=== PATIENT | female | born 1955 | race Caucasian/White ===

== ENCOUNTER 2016-10-13 19:17 | Emergency (ER) | payer OTHER ==
--- NOTE | ~2016-10-13 | EKG ---
PATIENT: KRUPA HOLLAND UNIT #: [id number] Ventricular Rate: 72 BPM Atrial Rate: 72 BPM P-R Interval: 126 ms QRS Duration: 90 ms Q-T Interval: 420 ms QTC Calculation(Bezet): 459 ms P Saxon: 72 degrees Calculated R Saxon: 45 degrees Calculated T Saxon: 79 degrees Diagnosis Line: Normal sinus rhythm Diagnosis Line: T wave abnormality, consider anterior ischemia Diagnosis Line: Abnormal ECG Diagnosis Line: No previous ECGs available Diagnosis Line: Confirmed by LEANDER PANG MD ([id number]) on 10/14/2016 Diagnosis Line: 5:25:32 PM INTERPRETING MD: POLY HIGGINBOTHAM
--- NOTE | ~2016-10-13 | CR63 ---
[facility]. [facility] A Service of [facility] RADIOLOGY TEXT RESULTS PATIENT: KRUPA HOLLAND LOCATION: SED : 59 UNIT #: [id number] AGE: [address]: Lotus Devries SEX: F ORDER DR: [id number] [address] [address] [id number] E MR#: [id number] Acc #: [id number] NAME: KRUPA HOLLAND : 1955 SEX: F STUDY DATE/TIME: 10/13/2016 20:04 UNIT: SED ROOM: STUDY DESCRIPTION: CR Chest 2 View Attending Physician: Lotus Devries Pa-C Ordering Physician: Lotus Devries Pa-C Primary Care Physician: No Primary Care Physician MEDICAL IMAGING REPORT This report is preliminary unless electronic signature is present. EXAM 2 view chest. INDICATIONS Back pain. Generalized weakness. 2-day duration. FINDINGS 2 views of the chest compared to 11/04/2006. The heart and mediastinal contours are within normal limits. No new pulmonary opacities. No pleural effusion. IMPRESSION No acute cardiopulmonary findings. Dictated by... Mitch Walden M.D. THIS IS AN ELECTRONICALLY VERIFIED REPORT Mitch Walden M.D. at 10/13/2016 9:47 PM EDER/taylor TD: 10/13/2016 21:05 JOB #: [id number] MEDICAL IMAGING REPORT Page 1 of 1
[~2016-10-13 19:17] MED LIST: AMOXICILLIN500 M1 PO; ANTIVERT PO; BAYER ASPIRIN325 M1 PO; BENADRYL25 MG PO; CLARITHROMYCIN500 MG; DICLOFENAC PO; DICLOFENAC SODI50 MG PO; IBUPROFEN PO; MEDROL PO; MULTIVITAMIN1 UDCAP PO; PAXIL PO; PERCOCET7.5 PO; PHENERGAN PO; PREDNISONE PO; PRILOSEC20 M1 PO; PRILOSEC40 MG PO; ROBAXIN500 MG PO; SLEEPING TABLET25 M1; TYLENOL #3 PO
[2016-10-13 20:35] LABS: BASOPHIL# 0.1 X10e3 (0-0.3); BASOPHIL% 0.7 % (0-2.5); EOSINOPHIL% 0.5 % (0.0-7.0); HEMATOCRIT 42.6 % (35.0-45.0); LYMPHOCYTE# 2.2 X10e3 (1.0-3.5); LYMPHOCYTE% 23.5 % (17.0-45.0); MEAN CELL VOLUME 85.2 FL (83-96); MEAN CORPUSCULAR HGB CONC 35.2 g/dL (30-36); MEAN PLATELET VOLUME 9.4 FL (6.5-11.5); MONOCYTE# 0.5 X10e3 (0-1.0); MONOCYTE% 5.7 % (3.0-12.0); NEUTROPHIL# 6.5 X10e3 (1.5-7.1); NEUTROPHIL% 69.6 % (40-75); PLATELET COUNT 306 X10e3 (140-420); RED CELL DISTRIBUTION WIDTH 12.3 % (11.0-15.5); WHITE BLOOD COUNT 9.4 X10e3 (4.0-10.5)
[2016-10-13 20:35] LABS: URINE SOURCE CLEAN CATCH
[2016-10-13 20:37] LABS: URINE APPEARANCE CLEAR; URINE BILIRUBIN NEG (NEG); URINE BLOOD 1+ (NEG); URINE COLOR YELLOW; URINE GLUCOSE NEG (NORM); URINE KETONE NEG (NEG); URINE LEUKOCYTE ESTERASE 1+ (NEG); URINE NITRATE NEG (NEG); URINE PH 5.5 (5-8); URINE PROTEIN NEG (NEG)
[2016-10-13 20:43] LABS: DIFF IND NO
[2016-10-13 20:46] LABS: MICRO INDICATED? YES
[2016-10-13 20:47] LABS: CULTURE INDICATED? YES; URINE BACTERIA 3+ (NEG); URINE MUCUS PRESENT; URINE SQUAMOUS EPITHELIAL CELL OCCAS /[HPF]
[2016-10-13 20:55] LABS: ALBUMIN SERUM 4.4 g/dL (3.5-5.0); BILIRUBIN, DIRECT 0.1 mg/dL (0.0-0.2); BILIRUBIN,INDIRECT 0.3 mg/dL (0.0-0.9); BILIRUBIN,TOTAL 0.4 mg/dL (0.2-2.0); BUN/CREATININE RATIO 11.66; CALCIUM SERUM 9.7 mg/dL (8.4-10.2); CREATININE SERUM 0.6 mg/dL (0.6-1.4); GLOM FILT RATE Estimated 99.8 mL/min (>60); PROTEIN TOTAL SERUM 7.8 g/dL (6.0-8.3)
[2016-10-13 21:37] LABS: POC - CKMB <1.0 ng/mL (0.0-7.9); POC - TROPONIN <0.05 ng/mL (<=0.05)
== END 2016-10-13 21:53 | disposition home or self-care (01) ==
LOC: SED 19:17
PROVIDERS: Physician Assistant Medical
DX: R53.83 Other fatigue (principal); M54.6 Pain in thoracic spine; F17.210 Nicotine dependence, cigarettes, uncomplicated; J44.9 Chronic obstructive pulmonary disease, unspecified; Z98.890 Other specified postprocedural states
CPT/HCPCS: 36415; 71020; 80048; 80076; 81003; 82553; 84484; 85025; 87086; 93005; 99283